=== PATIENT | female | born 1990 | race African-American/Black ===

== ENCOUNTER 2018-10-19 23:32 | Emergency (ER) | payer SELFPAY ==
[~2018-10-19] VITALS: Ht 157.5 cm; Wt 71.2 kg
[2018-10-19 23:40] VITALS: BP 121/83
--- NOTE | 2018-10-19 23:42 | NUR ---
TO LOBBY A/W BED AMBULATORY
--- NOTE | 2018-10-19 23:56 | NUR ---
PATIENT AMBULATED TO BED 9
[2018-10-20 00:03] VITALS: BP 121/83
--- NOTE | 2018-10-20 00:03 | NUR ---
28 Y/O F PRESENTED TO ED WITH C/O COUGH AND CONGESTION X5 DAYS. AAOX4. BILATERAL LUNG LANIER CLEAR THROUGHOUT. +COUGH, NON-PRODUCTIVE. 5/10 CHEST PAIN WHEN COUGHING ONLY. PER PT UNABLE TO SLEEP DUE TO COUGH. BED IN LOWEST POSITION. ERMD NOTIFIED OF PT STATUS. WILL CONTINUE TO MONITOR.
--- NOTE | 2018-10-20 00:44 | NUR ---
Patient discharged with v/s stable. Written and verbal after care instructions given and explained. Patient alert, oriented and verbalized understanding of instructions. Ambulatory with steady gait. All questions addressed prior to discharge. ID band removed. Patient advised to follow up with PMD. Rx of promethazine and prednisone given. Patient educated on indication of medication including possible reaction and side effects. Opportunity to ask questions provided and answered.
== END 2018-10-20 00:44 | disposition home or self-care (01) ==
LOC: MED 23:32
DX: R05 Cough (principal); R09.89 Other specified symptoms and signs involving the circulatory and respiratory systems; Z88.8 Allergy status to other drugs, medicaments and biological substances
CPT/HCPCS: 99283